=== PATIENT | male | born 1995 | race Caucasian/White ===

== ENCOUNTER 2019-09-07 14:25 | Emergency (ER) | payer BC ==
[~2019-09-07] VITALS: Ht 172.7 cm; Wt 79.5 kg
[2019-09-07 14:29] VITALS: BP 115/67
== END 2019-09-07 16:13 | disposition home or self-care (01) ==
LOC: EMS 14:42
DX: Z20.828 Contact with and (suspected) exposure to other viral communicable diseases (principal)
CPT/HCPCS: 99283; U0003